=== PATIENT | female | born 1960 | race Caucasian/White ===

== ENCOUNTER 2024-04-26 12:12 | Outpatient (CLI) | payer BC, OTHER, SELFPAY ==
--- NOTE | ~2024-04-26 | MM_ITS ---
EXAMINATION: MM screening kaleb BI w mykel HISTORY: Screening TECHNIQUE: Craniocaudal and mediolateral oblique 3-D tomosynthesis images were obtained and synthetic 2-D images were generated. CAD analysis was submitted and interpreted. COMPARISON: No prior mammogram is available for comparison at this institution. BREAST PARENCHYMAL COMPOSITION: Dense: The breasts are heterogeneously dense, which may obscure small masses FINDINGS: There is no evidence of suspicious mass, calcification, or architectural distortion to sugg est malignancy in either breast. There has been no suspicious interval change. IMPRESSION: 1. No mammographic evidence of malignancy. 2. Recommend routine screening mammography in one year. BI-RADS Category 1: Negative Reviewed, dictated and finalized at location B.
== END 2024-04-26 12:13 ==
LOC: MICIMG 12:13
PROVIDERS: PCP Family Medicine; Visit Provider Family Medicine
DX: Z12.31 Encounter for screening mammogram for malignant neoplasm of breast (principal)
CPT/HCPCS: 77063; 77067

== ENCOUNTER 2025-08-16 10:26 | Emergency (ER) | payer MEDICARE, BC, OTHER, SELFPAY ==
[2025-08-16 10:40] VITALS: BP 155/85; PULSE 96; RESP 16; TEMP 36.3; O2SAT 99
--- NOTE | 2025-08-16 11:13 | ED_ITS ---
HPI - Eye Problem General Chief complaint: Eye Problems Stated complaint: EYE REDNESS Time Seen by Provider: 08/16/25 11:08 Source: RN notes reviewed Mode of arrival: ambulatory Limitations: no limitations History of Present Illness HPI Narrative: 65-year-old female patient presents today complaining of bilateral eye itching and crusting x3 days, right greater than left with some white purulent discharge noted over the past couple of days. She is just getting over cold symptoms for the past 10 days as well. Denies pain in the eyes or vision changes. She does not wear contacts. Related Data Allergies Allergy/AdvReac Type Severity Reaction Status Date / Time No Known Allergies Allergy Verified 08/16/25 10:39 PMFSH Family History Family History Mother Pancreatic cancer Sibling Colon polyp Social History Social History Social History: Caffeine-coffee Smoking packs per day: 0.50 Smoking cigarettes per day: 10.0 Years smoked: 25 Smoking pack-years: 12.50 Smoking status: Current every day smoker (vaping) Tobacco type: e-cigarettes/vaping Smoking end date: 10/16/14 Additional smoking assessment comments: Pt quit cigarettes in 2015 now pt vapes Alcohol intake: current Drinks per week: 7 Alcohol use details: Wine Substance use: never Substance use type: does not use Do You Feel Safe in your Home?: Yes Lack of Transportation: No Lack of Food: Never True Current Housing: I Have Housing Concerned About Future Housing: No Difficulty Paying Gas/Electric Bills: No Difficulty Paying for Meds: No Currently Unemployed: No Education: Bachelor's Degree Difficulty w/ Childcare or Family Care: No Living arrangements: with friend(s) Occupation/Education: retired Gender identity (if verbalized by the patient): Female Agree to blood products: Yes Comments At time of signature, I have reviewed and agree with nursing past medical, surgical, social and family history unless otherwise noted. Please see nursing chart for further information. There is no relevant family history pertinent to the presenting complaint Exam Narrative: GENERAL: Well-appearing, well-nourished, and in no acute distress. HEAD: Normocephalic, atraumatic. EYES: EOMI. PERRL. Right eye:Moderately injected conjunctiva with tearing and small amount of purulent discharge in the medial canthus. Left eye: Mildly injected conjunctiva with tearing. Bilateral lids and lashes normal. ENT: Mucous membranes pink and moist. Nares clear. No rhinorrhea. NECK: Normal AROM. CHEST: No respiratory distress. EXTREMITIES: Normal range of motion. No edema. SKIN: Warm, dry, no rash. Capillary refill normal. Normal skin turgor. NEURO: No focal deficits. Alert and oriented x3. Gait steady. PSYCH: Normal affect. No signs of depression or anxiety. Course Course Level of Care: Express Care Visit Vital Signs Vital signs: Vital Signs Temperature 97.3 F L 08/16/25 10:40 Pulse Rate 96 08/16/25 10:40 Respiratory Rate 16 08/16/25 10:40 Blood Pressure 155/85 H 08/16/25 10:40 Pulse Oximetry 99 08/16/25 10:40 Temperature 97.3 F L 08/16/25 10:40 Pulse Rate 96 08/16/25 10:40 Respiratory Rate 16 08/16/25 10:40 Blood Pressure 155/85 H 08/16/25 10:40 Pulse Oximetry 99 08/16/25 10:40 Reviewed MDM - Eye Problem MDM Narrative Medical decision making narrative: 65-year-old female patient presents today complaining of bilateral eye itching and crusting x3 days, right greater than left with some white purulent discharge noted over the past couple of days. She is just getting over cold symptoms for the past 10 days as well. Denies pain in the eyes or vision changes. She does not wear contacts. Upon exam: Right eye:Moderately injected conjunctiva with tearing and small amount of purulent discharge in the medial canthus. Left eye: Mildly injected conjunctiva with tearing. Bilateral lids and lashes normal. Patient will be treated with Polytrim in the right eye for possible developing bacterial pinkeye. Left eye is likely viral. Recommend antihistamine eyedrops for itching as well. Patient agrees with plan. Vital signs stable. Anticipatory guidance given. Differential Diagnosis Differential diagnosis: Likely conjunctivitis Critical Care Time Critical Care Time Critical Care Time: No Discharge Plan Discharge Clinical Impression: Acute bacterial conjunctivitis of right eye, Acute viral conjunctivitis of left eye Patient Disposition: Home Condition: Stable Instructions: Conjunctivitis (ED) Additional Instructions: Please use the prescription eyedrops as directed in the right eye. For itching, you may use an antihistamine eyedrops such as Zaditor. Follow-up with your PCP next week if symptoms are not improving. Your blood pressure was elevated above 120/80 today at Urgent Care. This puts y ou above the threshold for follow up. Please schedule a followup visit with your personal physician as soon as possible, for further evaluation and treatment. Even blood pressure exceeding 120/80 may indicate pre-hypertension. Patient Language: [place] Prescriptions: New polymyxin B sulf-trimethoprim 10,000 unit- 1 mg/mL drops 1 drp RIGHT EYE QID 7 Days Qty: 10 0RF No Action Veozah 45 mg tablet 45 mg PO DAILY Qty: 90 3RF Follow-up/Referrals: Becky Osorio MD [Primary Care Provider, [facility]] Time of Disposition: 11:18
== END 2025-08-16 11:44 | disposition home or self-care (01) ==
PROVIDERS: Emergency Provider Nurse Practitioner; PCP Family Medicine
DX: H10.33 Unspecified acute conjunctivitis, bilateral (principal); F17.290 Nicotine dependence, other tobacco product, uncomplicated
CPT/HCPCS: 99213; G0463